=== PATIENT | female | born 1990 | race Caucasian/White ===

== ENCOUNTER 2019-01-18 23:06 | Emergency (ER) | payer SELFPAY ==
[2019-01-18 23:21] VITALS: BP 114/75; PULSE 85; TEMP 97.9; BMI 26.6
--- NOTE | 2019-01-19 00:10 | PDOC ---
History of Present Illness - General Chief Complaint: Rash Stated Complaint: BITES Time Seen by Provider: 01/18/19 23:52 History Source: Patient - History of Present Illness Initial Comments: 01/19/19 00:05 28-year-old female complaining of mosquito bites to both arms and legs with increasing itching and redness to the area for the last 3-4 days. Denies shortness of breath, respiratory symptoms. Denies fevers/chills, nausea, vomiting, abdominal pain. No past medical history Past History - Past Medical History Allergies/Adverse Reactions: Allergies Allergy/AdvReac Type Severity Reaction Status Date / Time No Known Allergies Allergy Verified 01/18/19 23:20 Home Medications: Ambulatory Orders Diphenhydramine HCl [Benadryl -] 25 mg PO Q8H PRN #21 capsule 01/19/19 Hydrocortisone 1% Cream [Hytone 1% Cream -] 1 applic TP BID #1 tube 01/19/19 - Suicide/Smoking/Psychosocial Hx Smoking History: Never smoked Information on smoking cessation initiated: No Hx Alcohol Use: No Drug/Substance Use Hx: No Review of Systems - Review of Systems Able to Perform ROS?: Yes Is the patient limited Jordanian proficient: No Constitutional: No: Symptoms Reported, See HPI, Chills, Diaphoresis, Fever, Loss of Appetite, Malaise, Night Sweats, Weakness, Weight Stable, Unintentional Wgt. Loss, Unexplained wgt Loss, Other Integumentary: Yes: Other (insect bites) *Physical Exam - Vital Signs Last Vital Signs Temp Pulse Resp BP Pulse Ox 97.9 F 85 20 114/75 99 01/18/19 23:18 01/18/19 23:18 01/18/19 23:18 01/18/19 23:18 01/18/19 23:18 - Physical Exam General Appearance: Yes: Moderate Distress HEENT: positive: Tonsillar Erythema. negative: Muffled/Hoarse voice Extremity: positive: Inflammation (multiple insect bites to both arms and legs) Integumentary: positive: Normal Color, Dry, Warm Neurologic: positive: Fully Oriented, Alert Progress Note - Progress Note Progress Note: insect bites with local reaction P: Benadryl hydrocortisone *DC/Admit/Observation/Transfer Diagnosis at time of Disposition: Allergic reaction to insect bite Mosquito bite Qualifiers: Encounter type: initial encounter Qualified Code(s): W57.XXXA - Bitten or stung by nonvenomous insect and other nonvenomous arthropods, initial encounter - Discharge Dispostion Disposition: HOME Condition at time of disposition: Good - Prescriptions Prescriptions: Diphenhydramine HCl [Benadryl -] 25 mg PO Q8H PRN #21 capsule PRN Reason: Allergies Hydrocortisone 1% Cream [Hytone 1% Cream -] 1 applic TP BID #1 tube - Referrals - Patient Instructions Printed Discharge Instructions: Insect Bites (Alternative Therapy) Additional Instructions: apply hydrocortisone to the area. take Benadryl every 6 hours as needed for itching follow up with your doctor as soon as much possible. - Post Discharge Activity Forms/Work/School Notes: Back to Work
== END 2019-01-19 00:50 | disposition home or self-care (01) ==
LOC: JER 23:06
PROC: 3E033GC Introduction of Other Therapeutic Substance into Peripheral Vein, Percutaneous Approach (ICD-10-PCS; principal; 2019-01-18)
DX: S40.862A Insect bite (nonvenomous) of left upper arm, initial encounter (principal); S40.861A Insect bite (nonvenomous) of right upper arm, initial encounter; S80.862A Insect bite (nonvenomous), left lower leg, initial encounter; S80.861A Insect bite (nonvenomous), right lower leg, initial encounter; L08.9 Local infection of the skin and subcutaneous tissue, unspecified; W57.XXXA Bitten or stung by nonvenomous insect and other nonvenomous arthropods, initial encounter; Y93.89 Activity, other specified; Y92.89 Other specified places as the place of occurrence of the external cause; Y99.8 Other external cause status
CPT/HCPCS: 99281-25